=== PATIENT | female | born 1985 | race Caucasian/White ===

== ENCOUNTER 2016-12-14 08:52 | Inpatient (IN) | payer SELFPAY ==
[~2016-12-14] VITALS: Ht 157.5 cm; Wt 81.0 kg
[~2016-12-14 08:52] MED LIST: Z.0.NO CURRENT MEDS
[2016-12-14 08:55] VITALS: BP 166/96; PULSE 68; RESP 15; TEMP 98.2; O2SAT 98
[2016-12-14] MEDS ORDERED: TEGR200T PO (09:04)
[2016-12-14] MEDS ORDERED: LISI-515 PO (09:04)
[2016-12-14] MEDS ORDERED: BUSP15TA PO (09:04)
[2016-12-14] MEDS ORDERED: PROZ20CA11 PO (09:04)
[2016-12-14] MEDS ORDERED: SODIUM CHLOR 0.9% 1000 ML INJ 1,000 ML IV SCH (09:10)
[2016-12-14 09:14] VITALS: RESP 15; O2SAT 100
[2016-12-14] MEDS ORDERED: ALUMINUM/MAGNESIUM/SIMETH 30 ML CUP PO ONE (09:15)
[2016-12-14] MEDS ORDERED: FAMOTIDINE 20 MG/2 ML VIAL IV PUSH ONE (09:15)
[2016-12-14] MEDS ORDERED: ONDANSETRON HCL 4 MG/2 ML VIAL IVP ONE (09:15)
[2016-12-14] MEDS ORDERED: LIDOCAINE VISCOUS 2% SOLN 15 ML UDC PO ONE (09:15)
[2016-12-14] MEDS ORDERED: MORPHINE SULFATE 4 MG/ML INJ IV PUSH ONE ×2 (09:15→11:30)
[2016-12-14] MEDS: SODIUM CHLORIDE 0.9% FLUSH 10 ML FLUSH IV FLUSH PRN ×2 (09:34→11:50)
[2016-12-14 09:46] LABS: AUTOMATED NEUTROPHIL # 6.8 TH/MM3 (1.8-7.7); BASOPHIL % 0.4 % (0.0-2.0); EOSINOPHIL # 0.1 TH/MM3 (0-0.4); EOSINOPHIL % 1.1 % (0.0-4.0); HEMATOCRIT 37.3 % (35.0-46.0); HEMO FLAGS DIFF FINAL; LYMPH % 13.8 % (9.0-44.0); LYMPHOCYTE # 1.2 TH/MM3 (1.0-4.8); MEAN CELL VOLUME 91.1 FL (80.0-100.0); MEAN CORPUSCULAR HEMOGLOBIN 31.2 PG (27.0-34.0); MEAN CORPUSCULAR HGB CONC 34.2 % (32.0-36.0); MONO % 8.2 % (0.0-8.0); NEUT % 76.5 % (16.0-70.0); PLATELET COUNT 269 TH/MM3 (150-450); RED BLOOD COUNT 4.09 MIL/MM3 (4.00-5.30); RED CELL DISTRIBUTION WIDTH 14.3 % (11.6-17.2); WHITE BLOOD COUNT 8.8 TH/MM3 (4.0-11.0)
--- NOTE | 2016-12-14 09:52 | PD ---
HPI Chief Complaint: Abdominal Pain Time Seen by Provider: 09:06 Travel History International Travel<30 days: No Contact w/Intl Traveler<30days: No Traveled to known affect area: No History of Present Illness HPI Patient is a 31 year old female who comes in complaining of epigastric abdominal pain for the past 4 days. She says it usually comes on at night, but today is worse and the pain has not gone away. She says the pain radiates through to her back. She says she has felt nauseous and she forced herself to throw up, thinking it would relieve her symptoms, but it did not help. She denies any fever or chills. She says she is having normal bowel movements. She says she tried taking an Omeprazole without relief. PFSH Past Medical History Blood Disorders: No Bipolar Disorder: Yes Anxiety: Yes Depression: Yes Cancer: No Cardiovascular Problems: No Diminished Hearing: No Endocrine: No Genitourinary: No Musculoskeletal: Yes (CHRONIC NECK PAIN) Neurologic: No Psychiatric: Yes (OD SLEEPING PILLS AT 16 Y/O) Reproductive: No Respiratory: No ?: Not LMP: 11/17/16 : 5 Para: 4 : 1 Tubal Ligation: Yes (01/30/08) Past Surgical History Abdominal Surgery: Yes (C/S) AICD: No Arteriovenous Shunt: No Section: Yes (LAST ) Insulin Pump: No Joint Replacement: No Pacemaker: No Other Surgery: No Social History Alcohol Use: No Tobacco Use: No Substance Use: No Allergies-Medications (Allergen,Severity, Reaction): Coded Allergies: No Known Allergies (Verified , 12/14/16) Reported Meds & Prescriptions Reported Meds & Active Scripts Active Reported Prozac (Fluoxetine HCl) 20 Mg Cap 30 Mg PO DAILY Tegretol (Carbamazepine) 200 Mg Tab 1,000 Mg PO DAILY Lisinopril 20 Mg Tab 20 Mg PO DAILY Buspirone (Buspirone HCl) 15 Mg Tab 15 Mg PO DAILY Review of Systems Except as stated in HPI: all other systems reviewed are Neg General / Constitutional: No: Fever, Chills HENT: No: Headaches, Lightheadedness Cardiovascular: No: Chest Pain or Discomfort Respiratory: No: Shortness of Breath Gastrointestinal: Positive: Nausea, Abdominal Pain, No: Diarrhea, Constipation Genitourinary: No: Dysuria Musculoskeletal: No: Myalgias, Pain Skin: No Rash, No Change in Pigmentation Neurologic: No: Weakness, Dizziness Physical Exam Narrative GENERAL: Awake and alert, in no acute distress. SKIN: Focused skin assessment warm/dry. HEAD: Atraumatic. Normocephalic. EYES: Pupils equal and round. No scleral icterus. ENT: Mucous membranes pink and moist. NECK: Trachea midline. No JVD. CARDIOVASCULAR: Regular rate and rhythm. No murmur appreciated. RESPIRATORY: No accessory muscle use. Clear to auscultation. Breath sounds equal bilaterally. GASTROINTESTINAL: Abdomen soft, nondistended. Tender to palpation of the right upper quadrant as well as the epigastric area. No rebound or guarding. MUSCULOSKELETAL: No obvious deformities. No clubbing. No cyanosis. No edema. NEUROLOGICAL: Awake and alert. No obvious cranial nerve deficits. Motor grossly within normal limits. Normal speech. PSYCHIATRIC: Appropriate mood and affect; insight and judgment normal. Data Data Last Documented VS Vital Signs Date Time Temp Pulse Resp B/P Pulse Ox O2 Delivery O2 Flow Rate FiO2 12/14/16 12:00 85 16 162/102 98 Room Air 12/14/16 08:55 98.2 Orders Basic Metabolic Panel (Bmp) (12/14/16 09:10) Complete Blood Count With Diff (12/14/16 09:10) Lipase (12/14/16 09:10) Urinalysis - C+S If Indicated (12/14/16 09:10) Ua Includes Microscopic (12/14/16 09:10) Us Abdomen Gallbladder (12/14/16 ) Iv Access Insert/Monitor (12/14/16 09:10) Ecg Monitoring (12/14/16 09:10) Oximetry (12/14/16 09:10) Morphine Inj (Morphine Inj) (12/14/16 09:15) Ondansetron Inj (Zofran Inj) (12/14/16 09:15) Sodium Chlor 0.9% 1000 Ml Inj (Ns 1000 M (12/14/16 09:10) Sodium Chloride 0.9% Flush (Ns Flush) (12/14/16 09:15) Famotidine Inj (Pepcid Inj) (12/14/16 09:15) Al-Mag Hy-Si 40-40-4 Mg/Ml Liq (Mag-Al P (12/14/16 09:15) Lidocaine 2% Viscous (Xylocaine 2% Visco (12/14/16 09:15) Ed Urine Pregnancytest Poc (12/14/16 09:10) Hepatic Functional Panel (12/14/16 09:10) Morphine Inj (Morphine Inj) (12/14/16 11:30) Admit Order (Ed Use Only) (12/14/16 ) Consult Gastroenterology (12/14/16 ) Labs Laboratory Tests Test 12/14/16 09:10 White Blood Count 8.8 TH/MM3 Red Blood Count 4.09 MIL/MM3 Hemoglobin 12.8 GM/DL Hematocrit 37.3 % Mean Corpuscular Volume 91.1 FL Mean Corpuscular Hemoglobin 31.2 PG Mean Corpuscular Hemoglobin 34.2 % Concent Red Cell Distribution Width 14.3 % Platelet Count 269 TH/MM3 Mean Platelet Volume 7.9 FL Neutrophils (%) (Auto) 76.5 % Lymphocytes (%) (Auto) 13.8 % Monocytes (%) (Auto) 8.2 % Eosinophils (%) (Auto) 1.1 % Basophils (%) (Auto) 0.4 % Neutrophils # (Auto) 6.8 TH/MM3 Lymphocytes # (Auto) 1.2 TH/MM3 Monocytes # (Auto) 0.7 TH/MM3 Eosinophils # (Auto) 0.1 TH/MM3 Basophils # (Auto) 0.0 TH/MM3 CBC Comment DIFF FINAL Differential Comment Urine Color YELLOW Urine Turbidity CLOUDY Urine pH 7.0 Urine Specific [place] 1.031 Urine Protein 30 mg/dL Urine Glucose (UA) NEG mg/dL Urine Ketones NEG mg/dL Urine Occult Blood NEG Urine Nitrite NEG Urine Bilirubin NEG Urine Urobilinogen 2.0 MG/DL Urine Leukocyte Esterase NEG Urine WBC LESS THAN 1 /hpf Urine Squamous Epithelial 5 /hpf Cells Urine Amorphous Sediment MANY Microscopic Urinalysis Comment CULT NOT INDICATED Sodium Level 137 MEQ/L Potassium Level 3.5 MEQ/L Chloride Level 106 MEQ/L Carbon Dioxide Level 26.2 MEQ/L Anion Gap 5 MEQ/L Blood Urea Nitrogen 13 MG/DL Creatinine 0.55 MG/DL Estimat Glomerular Filtration 129 ML/MIN Rate Random Glucose 93 MG/DL Calcium Level 8.0 MG/DL Total Bilirubin 0.5 MG/DL Direct Bilirubin 0.3 MG/DL Indirect Bilirubin 0.2 MG/DL Aspartate Amino Transf 625 U/L (AST/SGOT) Alanine Aminotransferase 312 U/L (ALT/SGPT) Alkaline Phosphatase 489 U/L Total Protein 6.9 GM/DL Albumin 3.2 GM/DL Lipase 290 U/L Urine Opiates Screen NEG Acetaminophen Level LESS THAN 2.0 MCG/ML Urine Barbiturates Screen NEG Urine Amphetamines Screen NEG Urine Benzodiazepines Screen NEG Urine Cocaine Screen NEG Urine Cannabinoids Screen NEG MDM Medical Decision Making Medical Screen Exam Complete: Yes Emergency Medical Condition: Yes Medical Record Reviewed: Yes Differential Diagnosis Cholecystitis versus pancreatitis versus GERD versus gastritis Narrative Course is a 31-year-old female comes in complaining of epigastric abdominal pain for the past 4 days ago worse last night. Exam shows tenderness to the epigastric area as well as right upper quadrant. IV established, labs sent. Labs show an elevation in AST and ALTs was 625 and 312 as well as an elevation of alkaline phosphatase to 489. Right upper quadrant ultrasound performed shows multiple gallstones and dilatation of the common bile duct to 9 mm. Last 24 hours Impressions Gall Bladder Ultrasound 12/14/16 0000 Signed Impressions: Service Date/Time: Wednesday, December 14, 2016 09:29 - CONCLUSION: 1. Cholelithiasis with multiple echogenic gallstones. There is no wall thickening or pericholecystic fluid. 2. The common bile duct is enlarged at 9 mm with no visualized stone. The entire duct cannot be visualized. 3. The liver is mildly prominent with findings characteristic of fatty infiltration. Hugo Andersen MD Patient given pain medicine. GI consulted for ERCP. Patient admitted for further management. Diagnosis Primary Impression: Cholelithiasis Qualified Code: K80.71 - Calculus of gallbladder and bile duct with obstruction without cholecystitis Additional Impressions: Common bile duct dilatation Transaminitis Admitting Information Admitting Physician Requests: Admit Condition: Stable Marcella Kim MD Dec 14, 2016 09:52
[2016-12-14 09:55] LABS: BICARBONATE 26.2 MEQ/L (21.0-32.0); POTASSIUM 3.5 MEQ/L (3.5-5.1)
[2016-12-14 09:59] LABS: INDIRECT BILIRUBIN 0.2 MG/DL (0.0-0.8); TOTAL BILIRUBIN ADULT 0.5 MG/DL (0.2-1.0)
[2016-12-14 10:14] LABS: BLOOD, URINE NEG (NEG); COMMENT (UR) CULT NOT INDICATED; CULTURE IF INDICATED CULT NOT INDICATED; GLUCOSE,URINE NEG (NEG); KETONE, URINE NEG (NEG); NITRITE,URINE NEG (NEG); SQUAMOUS EPITHELIAL CELL URINE 5 /hpf (0-5); URINE COLOR YELLOW (YELLW/STRAW)
--- NOTE | 2016-12-14 10:16 | RADRPT ---
EXAM DATE/TIME: 12/14/2016 09:29 [facility] COMPARISON: No previous studies available for comparison. INDICATIONS : Right upper quadrant pain. MEDICAL HISTORY : Anxiety. Depression. Bipolar. Chronic neck pain. SURGICAL HISTORY : Tubal ligation. section. ENCOUNTER: Initial ACUITY: 3 days PAIN SCORE: 8/10 LOCATION: Right upper quadrant MEASUREMENTS: LIVER: 18.2 cm length COMMON DUCT: 9 mm RIGHT KIDNEY: 10.5 x 5.9 x 4.2 cm FINDINGS: LIVER: The liver is prominent measuring up to 18.2 cm with mild increased echogenicity. There is no focal ma ss or intrahepatic ductal dilatation. COMMON DUCT: Common bile duct is dilated and measures up to 9 mm in size. There is no evidence of choledocholithia sis in the visualized portions of the duct. GALLBLADDER: There are multiple echogenic gallstones with posterior shadowing. There is no gallbladder wall thicke farrah or pericholecystic fluid. PANCREAS: The visualized portions are within normal limits. RIGHT KIDNEY: No evidence of hydronephrosis, stone, or mass. CONCLUSION: 1. Cholelithiasis with multiple echogenic gallstones. There is no wall thickening or pericholecystic fluid. 2. The common bile duct is enlarged at 9 mm with no visualized stone. The entire duct cannot be visua lized. 3. The liver is mildly prominent with findings characteristic of fatty infiltration. Hugo Andersen MD on December 14, 2016 at 10:11 Board Certified Radiologist. This report was verified electronically.
[2016-12-14 12:00] VITALS: BP 162/102; PULSE 85; RESP 16; O2SAT 98
--- NOTE | 2016-12-14 12:11 | HHI.HP ---
HPI Service Family Medicine Primary Care Physician No Primary Care Physician Admission Diagnosis Cholelithiasis, obstructing gallstone, Transaminitis Diagnoses: International Travel<30 Days: No Contact w/Intl Traveler<30days: No Known Affected Area: No History of Present Illness 31 y/o F presented to ER with unremitting upper abdominal pain since 3AM. The patient had similar pain around the same time on the 2 nights prior (saturday and saturday night) , however this time the pain did not go away with tylenol. She feels a band of pain around her upper abdomen that radiates to the back. She does experience N/V when she gets the pain. Denies any diarrhea/ constipation. Over the last 24hrs she has vomited 3 times - vomiting food of brown color, no red or green. The pt has a hx of drug use and has been using IV Dilaudid this week during the day. Today she tried tylenol and prilosec and neither relieved her pain. In total she has taken 20 tylenol since saturday. She does not usually take this much tylenol. She has never felt a pain like this before and she has never had biliary colic. She denies any pain following fatty meals. her last meal was a hamburger at 8PM last night. Review of Systems Constitutional: DENIES: Fever, Chills, Dizziness Endocrine: DENIES: Polyuria Eyes: DENIES: Vision loss, Double Vision Ears, nose, mouth, throat: DENIES: Throat pain, Sinus Pain Respiratory: DENIES: Cough, Wheezing, Shortness of breath Gastrointestinal: DENIES: Constipation, Diarrhea Genitourinary: DENIES: Dysmenorrhea Musculoskeletal: DENIES: Neck pain Integumentary: DENIES: Rash Immunologic/allergic: DENIES: Urticaria Neurologic: DENIES: Headache Psychiatric: DENIES: Mood changes Past Family Social History Past Medical History LMP 11/17, regular periods x 3 c/s x 1 - STAT c/s hypertension (dx 2014 while [facility]) - on lisinopril daily Bipolar (dx 2014 while in penitentiary) - currently has appt at [facility] () Past Surgical History c/s x1 Reported Medications lisinopril psych meds: busipar, tegratol, prozac Allergies: Coded Allergies: No Known Allergies (Verified , 12/14/16) Family History father - mother - alive, GB removed -pt states multiple people in family have had cholecystectomy Social History denies tobacco,drinks rarely, + drug use drug use: IV drug use (meth, dilaudid) - pt originally states she last used IV drugs 3 years ago, upon further questioning she admits to drug use this week lives with [id number], says she feels comfortable and has support at home, she has been out of penitentiary for 3 weeks Physical Exam Vital Signs Vital Signs Date Time Temp Pulse Resp B/P Pulse Ox O2 Delivery O2 Flow Rate FiO2 12/14/16 11:54 16 12/14/16 10:21 16 12/14/16 09:14 15 100 Room Air 12/14/16 09:08 16 12/14/16 08:55 98.2 68 15 166/96 98 Physical Exam GENERAL: This is a well-nourished, well-developed patient, in no apparent distress. SKIN: No rashes, ecchymoses or lesions. Cool and dry. HEAD: Atraumatic. Normocephalic. No temporal or scalp tenderness. EYES: Pupils equal round and reactive. Extraocular motions intact. No scleral icterus. No injection or drainage. ENT: Nose without bleeding, purulent drainage or septal hematoma. Throat without erythema, tonsillar hypertrophy or exudate. Uvula midline. Airway patent. NECK: Trachea midline. No JVD or lymphadenopathy. Supple, nontender, no meningeal signs. CARDIOVASCULAR: Regular rate and rhythm without murmurs, gallops, or rubs. RESPIRATORY: Clear to auscultation. Breath sounds equal bilaterally. No wheezes , rales, or rhonchi. GASTROINTESTINAL: Abdomen soft, mild tenderness to deep palpation in upper left and right quadrants, nondistended. No hepato-splenomegaly, or palpable masses. No guarding. MUSCULOSKELETAL: Extremities without clubbing, cyanosis, or edema. No joint tenderness, effusion, or edema noted. No calf tenderness. Negative Homans sign bilaterally. NEUROLOGICAL: Awake and alert. Cranial nerves II through XII intact. Motor and sensory grossly within normal limits. Five out of 5 muscle strength in all muscle groups. Normal speech. Laboratory Laboratory Tests Test 12/14/16 09:10 White Blood Count 8.8 Red Blood Count 4.09 Hemoglobin 12.8 Hematocrit 37.3 Mean Corpuscular Volume 91.1 Mean Corpuscular Hemoglobin 31.2 Mean Corpuscular Hemoglobin 34.2 Concent Red Cell Distribution Width 14.3 Platelet Count 269 Mean Platelet Volume 7.9 Neutrophils (%) (Auto) 76.5 Lymphocytes (%) (Auto) 13.8 Monocytes (%) (Auto) 8.2 Eosinophils (%) (Auto) 1.1 Basophils (%) (Auto) 0.4 Neutrophils # (Auto) 6.8 Lymphocytes # (Auto) 1.2 Monocytes # (Auto) 0.7 Eosinophils # (Auto) 0.1 Basophils # (Auto) 0.0 CBC Comment DIFF FINAL Differential Comment Urine Color YELLOW Urine Turbidity CLOUDY Urine pH 7.0 Urine Specific [place] 1.031 Urine Protein 30 Urine Glucose (UA) NEG Urine Ketones NEG Urine Occult Blood NEG Urine Nitrite NEG Urine Bilirubin NEG Urine Urobilinogen 2.0 Urine Leukocyte Esterase NEG Urine WBC LESS THAN 1 Urine Squamous Epithelial 5 Cells Urine Amorphous Sediment MANY Microscopic Urinalysis Comment CULT NOT INDICATED Sodium Level 137 Potassium Level 3.5 Chloride Level 106 Carbon Dioxide Level 26.2 Anion Gap 5 Blood Urea Nitrogen 13 Creatinine 0.55 Estimat Glomerular Filtration 129 Rate Random Glucose 93 Calcium Level 8.0 Total Bilirubin 0.5 Direct Bilirubin 0.3 Indirect Bilirubin 0.2 Aspartate Amino Transf 625 (AST/SGOT) Alanine Aminotransferase 312 (ALT/SGPT) Alkaline Phosphatase 489 Total Protein 6.9 Albumin 3.2 Lipase 290 Result Diagram: 12/14/16 0910 12/14/16 0910 Assessment and Plan Assessment and Plan 31-year-old female with choledocholithiasis, scheduled for ERCP today and tentatively scheduled for laparoscopic cholecystectomy at 8 AM tomorrow. Code Status DNR Discussed Condition With Dr. Nicole Problem List: (1) Cholelithiasis Status: Acute Plan: choledocolithiasis - Abdominal ultrasound: Cholelithiasis with multiple echogenic gallstones. There is no wall thickening or pericholecystic fluid. Common bile duct is enlarged at 9 mm with no visualized stone. The entire duct cannot be visualized. Liver is mildly prominent with findings characteristic of fatty infiltration. - confirmed by 9mm CBD on abdominal u/s - GI consult for ERCP with sphincterotomy and balloon stone retrieval today - General surgery consult for lap cholecystectomy - cont pain management - NPO - IVF NS 120/hr (2) Transaminitis Status: Acute Plan: Transaminitis due to biliary transaminitis versus acetaminophen tox - AST 625, ALTs 312, alkaline phosphatase 49, total bilirubin 0.5 - Acetaminophen tox level = less than 2 - Likely transaminitis due to biliary source - Follow up labs in a.m. (3) Common bile duct dilatation Status: Acute Plan: see plan under cholelithiasis (4) Hypertension Status: Chronic Plan: Primary hypertension Cont home medications: Lisinopril 20 daily (5) Heart murmur on physical examination Status: Acute Plan: 2-3/6 systolic murmur, hx of IV drug use - TTE and blood cx to r/o endocarditis - afebrile, VSS at this time, does not meet septic criteria (6) IV drug user Status: Chronic Plan: f/u UDS (7) Bipolar disorder Status: Chronic Plan: Continue home medications: Buspirone 15 daily, Tegretol 200 mg daily, fluoxetine 20 daily Physician Certification 2 Midnight Certification Type: Admission for Inpatient Services Order for Inpatient Services The services are ordered in accordance with Medicare regulations or non- Medicare payer requirements, as applicable. In the case of services not specified as inpatient-only, they are appropriately provided as inpatient services in accordance with the 2-midnight benchmark. Estimated LOS (days): 2 days is the estimated time the patient will need to remain in the hospital, assuming treatment plan goals are met and no additional complications. Post-Hospital Plan: Home Problem Qualifiers (1) Cholelithiasis: Qualified Code: K80.71 - Calculus of gallbladder and bile duct with obstruction without cholecystitis Sarah Alcaraz MD R2 Dec 14, 2016 12:11
[2016-12-14] MEDS ORDERED: SODIUM CHLORIDE 0.9% FLUSH 10 ML FLUSH IV FLUSH PRN (12:15)
[2016-12-14 12:18] VITALS: O2SAT 99
--- NOTE | 2016-12-14 12:42 | PD.CONS ---
HPI History of Present Illness This is a 31 year old who came to the ER for evaluation of abdominal pain. She reports that the pain has been waking her up out of her sleep every night since Saturday. She describes this as a "contraction type pain" across her upper abdomen with radiation to her back and associated nausea/vomiting with undigested food. She cannot identify any aggravating factors. She has tried Tylenol at home (5 at a time) every few hours. She reports that she has probably taken 20 Tylenol since Saturday. She has not had any today. She has also tried protonix. Usually, the pain will gradually resolve, but she reports that this last episode that began around [place] last night has been more severe and constant. She denies bloating, constipation, or diarrhea. She denies any food intolerances. She denies any heartburn or reflux. She does not drink alcohol. She does have a hx of IV Methamphetamines 3 years ago and current IV Dilaudid use (last on Saturday). She has a history of Hepatitis C, treatment naive. ( Malika Baez) PFSH Past Medical History Hepatitis C, tx naive IVDA Past Surgical History (Malika Baez) Coded Allergies: No Known Allergies (Verified , 12/14/16) Medications Allergies Coded Allergies Type Severity Reaction Last Updated Verified No Known Allergies 12/14/16 Yes Active Scripts Medications Dose Route/Sig Days Date Category Prozac (Fluoxetine HCl) 20 Mg Cap 30 Mg PO DAILY 12/14/16 Reported Tegretol (Carbamazepine) 200 Mg Tab 1,000 Mg PO DAILY 12/14/16 Reported Lisinopril 20 Mg Tab 20 Mg PO DAILY 12/14/16 Reported Buspirone (Buspirone HCl) 15 Mg Tab 15 Mg PO DAILY 12/14/16 Reported Family History Denies Social History No tobacco. No etoh use Hx IV methamphetamines (3 years ago) and dilaudid (saturday) (Malika Baez) Review of Systems Constitutional: DENIES: Fatigue, Fever, Weight loss, Chills Respiratory: DENIES: Cough, Shortness of breath Cardiovascular: DENIES: Chest pain Gastrointestinal: COMPLAINS OF: Abdominal pain, Nausea, Vomiting, DENIES: Black stools, Bloody stools, Constipation, Diarrhea, Swelling of Abdomen, Heartburn, Hematemesis Musculoskeletal: COMPLAINS OF: Back pain, DENIES: Joint pain Integumentary: DENIES: Jaundice Hematologic/lymphatic: DENIES: Bruising Neurologic: DENIES: Headache Psychiatric: DENIES: Confusion (Malika Baez JOAN) GI Exam Vitals I&O Vital Signs Date Time Temp Pulse Resp B/P Pulse Ox O2 Delivery O2 Flow Rate FiO2 12/14/16 12:18 99 21 12/14/16 12:00 85 16 162/102 98 Room Air 12/14/16 11:54 16 12/14/16 10:21 16 12/14/16 09:14 15 100 Room Air 12/14/16 09:08 16 12/14/16 08:55 98.2 68 15 166/96 98 Imaging Last Impressions Gall Bladder Ultrasound 12/14/16 0000 Signed Impressions: Service Date/Time: Wednesday, December 14, 2016 09:29 - CONCLUSION: 1. Cholelithiasis with multiple echogenic gallstones. There is no wall thickening or pericholecystic fluid. 2. The common bile duct is enlarged at 9 mm with no visualized stone. The entire duct cannot be visualized. 3. The liver is mildly prominent with findings characteristic of fatty infiltration. Hugo Andersen MD Laboratory Test 12/14/16 09:10 White Blood Count 8.8 TH/MM3 Red Blood Count 4.09 MIL/MM3 Hemoglobin 12.8 GM/DL Hematocrit 37.3 % Mean Corpuscular Volume 91.1 FL Mean Corpuscular Hemoglobin 31.2 PG Mean Corpuscular Hemoglobin 34.2 % Concent Red Cell Distribution Width 14.3 % Platelet Count 269 TH/MM3 Mean Platelet Volume 7.9 FL Neutrophils (%) (Auto) 76.5 % Lymphocytes (%) (Auto) 13.8 % Monocytes (%) (Auto) 8.2 % Eosinophils (%) (Auto) 1.1 % Basophils (%) (Auto) 0.4 % Neutrophils # (Auto) 6.8 TH/MM3 Lymphocytes # (Auto) 1.2 TH/MM3 Monocytes # (Auto) 0.7 TH/MM3 Eosinophils # (Auto) 0.1 TH/MM3 Basophils # (Auto) 0.0 TH/MM3 CBC Comment DIFF FINAL Differential Comment Urine Color YELLOW Urine Turbidity CLOUDY Urine pH 7.0 Urine Specific [place] 1.031 Urine Protein 30 mg/dL Urine Glucose (UA) NEG mg/dL Urine Ketones NEG mg/dL Urine Occult Blood NEG Urine Nitrite NEG Urine Bilirubin NEG Urine Urobilinogen 2.0 MG/DL Urine Leukocyte Esterase NEG Urine WBC LESS THAN 1 /hpf Urine Squamous Epithelial 5 /hpf Cells Urine Amorphous Sediment MANY Microscopic Urinalysis Comment CULT NOT INDICATED Sodium Level 137 MEQ/L Potassium Level 3.5 MEQ/L Chloride Level 106 MEQ/L Carbon Dioxide Level 26.2 MEQ/L Anion Gap 5 MEQ/L Blood Urea Nitrogen 13 MG/DL Creatinine 0.55 MG/DL Estimat Glomerular Filtration 129 ML/MIN Rate Random Glucose 93 MG/DL Calcium Level 8.0 MG/DL Total Bilirubin 0.5 MG/DL Direct Bilirubin 0.3 MG/DL Indirect Bilirubin 0.2 MG/DL Aspartate Amino Transf 625 U/L (AST/SGOT) Alanine Aminotransferase 312 U/L (ALT/SGPT) Alkaline Phosphatase 489 U/L Total Protein 6.9 GM/DL Albumin 3.2 GM/DL Lipase 290 U/L Physical Examination HEENT: Normocephalic; atraumatic; no jaundice. Throat is clear. NECK: Neck is supple, no JVD, no lymphadenopathy. CHEST: CTA CARDIAC: RRR ABDOMEN: Soft, nondistended, epigastric tenderness; no hepatosplenomegaly; bowel sounds are present in all four quadrants. EXTREMITIES: No clubbing, cyanosis, or edema. SKIN: Normal; no rash; no jaundice. DELIVERER PHARMACY: No focal deficits; alert and oriented times three. (Malika Baez [facility]) Assessment and Plan Plan ASSESSMENT: - Abdominal pain, nausea, vomiting with dilated CBD. Epigastric pain awaking her from sleep nightly since Saturday. Last night, her symptoms did not resolve as they usually do. Gall Bladder Ultrasound (12/14/16)----> 1. Cholelithiasis with multiple echogenic gallstones. There is no wall thickening or pericholecystic fluid. 2. The common bile duct is enlarged at 9 mm with no visualized stone. The entire duct cannot be visualized. 3. The liver is mildly prominent with findings characteristic of fatty infiltration. T. Bili 0.2, AST 625, ALT 312, Alk Phosph 489. Will plan for ERCP with sphincterotomy and possible stent placement today. NPO. IVF. - Elevated LFTs. Likely related to above. But patient also has a hx of underlying HCV and takes IV Dilaudid and has been taking excessive Tylenol for her abdominal pain- 20 pills since Saturday. Will get acetaminophen level. - Hepatitis C, Tx naive. - IVDA, last took Dilaudid IV on Saturday. PLAN: - Plan for ERCP with possible sphincterotomy, possible stent placement - Obtain consents - NPO - IVF - Acetaminophen level - Hepatitis profile - CBC, CMP in am - Supportive care - Further recommendations to follow based on results of above - Pt seen and examined by Dr. Diaz and myself and this note is written on his behalf (Malika Baez) Physician Comments Patient seen and examined agree with above Continue with current supportive care Monitor labs High suspicion for choledocholithiasis with a dilated duct abdominal pain and elevated liver function tests and gallstones therefore we will proceed with an ERCP (Dandy Diaz MD) Malika Baez Dec 14, 2016 12:42 Dandy Diaz MD Dec 14, 2016 20:36
[2016-12-14] MEDS ORDERED: MORPHINE SULFATE 4 MG/ML INJ IV PRN ×2 (12:45)
[2016-12-14] MEDS ORDERED: NALOXONE HCL 0.4 MG/ML AMP IV PRN (12:45)
[2016-12-14] MEDS: SODIUM CHLOR 0.9% 1000 ML INJ 1,000 ML IV SCH ×2 (14:32→21:19)
[2016-12-14] MEDS: MORPHINE SULFATE 4 MG/ML INJ IV PRN (15:28)
[2016-12-14 16:00] VITALS: BP 163/90; PULSE 70; RESP 17; TEMP 96.2; O2SAT 100
[2016-12-14] MEDS ORDERED: IOHEXOL 350 MG/ML 50 ML BTL (for RAD DIAG) OTHER ONE (16:08)
--- NOTE | 2016-12-14 16:18 | PD.CONS ---
cc: Hugo Middleton MD [facility] Service General Surgery Consult Requested By Dr. Nicole Reason for Consult choledocholithiasis Primary Care Physician No Primary Care Physician History of Present Illness This is a 31-year-old female with a past medical history of hypertension and IV drug abuse. The patient reports abdominal pain that began on Saturday which was dull and intermittent. On present night the pain became constant and sharp. The patient reports no dietary intolerance. The last meal she had was baked chicken last night. She was taking Tylenol without any relief of the pain. The patient has never had an episode like this before. The ultrasound of the gallbladder showed cholelithiasis without gallbladder wall thickening or fluid. The common bile duct is enlarged at 9 mm. She does have elevated liver enzymes. A GI consult was also obtained for ERCP. The patient is going for her ERCP today. A General Surgery consultation has been requested for evaluation of laparoscopic cholecystectomy status post ERCP. Review of Systems Constitutional: DENIES: Fever, Dizziness, Change in appetite Endocrine: DENIES: Polydipsia, Polyuria, Polyphagia Eyes: DENIES: Blurred vision Ears, nose, mouth, throat: DENIES: Hearing loss Respiratory: DENIES: Apneas Cardiovascular: DENIES: Chest pain Gastrointestinal: COMPLAINS OF: Abdominal pain, Nausea, Vomiting Genitourinary: DENIES: Urinary frequency Musculoskeletal: DENIES: Joint pain Integumentary: DENIES: Abnormal pigmentation Hematologic/lymphatic: DENIES: Bruising Immunologic/allergic: DENIES: Eczema Neurologic: DENIES: Headache, Localized weakness Psychiatric: DENIES: Mood changes, Depression Past Family Social History Past Medical History Hepatitis C Hypertension IVDA Past Surgical History and 2007 Reported Medications Lisinopril Tegretol Prozac BuSpar Allergies: Coded Allergies: No Known Allergies (Verified , 12/14/16) Active Ordered Medications Current Medications Medications (Trade) Dose Ordered Sig/Apollo Route Start Time Stop Time Status Last Admin (NS Flush) 2 ml UNSCH PRN IV FLUSH 12/14/16 09:15 12/14/16 11:50 Sodium Chloride 2 ml 2 ml BID IV FLUSH 12/14/16 21:00 (NS 1000 ml Inj) 1,000 ml @ 120 mls/hr Q8H20M IV 12/14/16 14:00 12/14/16 14:32 (Morphine Inj) 2 mg Q3H PRN IV 12/14/16 12:45 (Morphine Inj) 4 mg Q3H PRN IV 12/14/16 12:45 12/14/16 15:28 (Morphine Inj) 3 mg Q3H PRN IV 12/14/16 12:45 (Narcan Inj) 0.4 mg UNSCH PRN IV 12/14/16 12:45 Family History Mother and younger sister have had laparoscopic cholecystectomy Social History Denies tobacco use Denies EtOH use Denies illicit drug use but after review of the chart the patient last use IV Dilaudid on Saturday; she has a history of IV drug abuse Physical Exam Vital Signs Vital Signs Date Time Temp Pulse Resp B/P Pulse Ox O2 Delivery O2 Flow Rate FiO2 12/14/16 12:18 99 21 12/14/16 12:00 85 16 162/102 98 Room Air 12/14/16 11:54 16 12/14/16 10:21 16 12/14/16 09:14 15 100 Room Air 12/14/16 09:08 16 12/14/16 08:55 98.2 68 15 166/96 98 Physical Exam GENERAL: 31-year-old female resting in bed in no acute distress SKIN: Warm and dry. Multiple tattoos on bilateral upper extremities. HEAD: Atraumatic. Normocephalic. EYES: Pupils equal and round. No scleral icterus. No injection or drainage. ENT: No nasal bleeding or discharge. Mucous membranes pink and moist. NECK: Trachea midline. CARDIOVASCULAR: Regular rate and rhythm. RESPIRATORY: No accessory muscle use. Clear to auscultation. Breath sounds equal bilaterally. GASTROINTESTINAL: Abdomen soft, minimally tender with palpation in right upper quadrant; nondistended; obese. MUSCULOSKELETAL: Extremities without clubbing, cyanosis, or edema. No obvious deformities. NEUROLOGICAL: Awake and alert. No obvious cranial nerve deficits. Motor grossly within normal limits. Five out of 5 muscle strength in the arms and legs. Normal speech. PSYCHIATRIC: Appropriate mood and affect; insight and judgment normal. Laboratory Laboratory Tests Test 12/14/16 09:10 White Blood Count 8.8 Red Blood Count 4.09 Hemoglobin 12.8 Hematocrit 37.3 Mean Corpuscular Volume 91.1 Mean Corpuscular Hemoglobin 31.2 Mean Corpuscular Hemoglobin 34.2 Concent Red Cell Distribution Width 14.3 Platelet Count 269 Mean Platelet Volume 7.9 Neutrophils (%) (Auto) 76.5 Lymphocytes (%) (Auto) 13.8 Monocytes (%) (Auto) 8.2 Eosinophils (%) (Auto) 1.1 Basophils (%) (Auto) 0.4 Neutrophils # (Auto) 6.8 Lymphocytes # (Auto) 1.2 Monocytes # (Auto) 0.7 Eosinophils # (Auto) 0.1 Basophils # (Auto) 0.0 CBC Comment DIFF FINAL Differential Comment Urine Color YELLOW Urine Turbidity CLOUDY Urine pH 7.0 Urine Specific [place] 1.031 Urine Protein 30 Urine Glucose (UA) NEG Urine Ketones NEG Urine Occult Blood NEG Urine Nitrite NEG Urine Bilirubin NEG Urine Urobilinogen 2.0 Urine Leukocyte Esterase NEG Urine WBC LESS THAN 1 Urine Squamous Epithelial 5 Cells Urine Amorphous Sediment MANY Microscopic Urinalysis Comment CULT NOT INDICATED Sodium Level 137 Potassium Level 3.5 Chloride Level 106 Carbon Dioxide Level 26.2 Anion Gap 5 Blood Urea Nitrogen 13 Creatinine 0.55 Estimat Glomerular Filtration 129 Rate Random Glucose 93 Calcium Level 8.0 Total Bilirubin 0.5 Direct Bilirubin 0.3 Indirect Bilirubin 0.2 Aspartate Amino Transf 625 (AST/SGOT) Alanine Aminotransferase 312 (ALT/SGPT) Alkaline Phosphatase 489 Total Protein 6.9 Albumin 3.2 Lipase 290 Urine Opiates Screen NEG Acetaminophen Level LESS THAN 2.0 Urine Barbiturates Screen NEG Urine Amphetamines Screen NEG Urine Benzodiazepines Screen NEG Urine Cocaine Screen NEG Urine Cannabinoids Screen NEG Date/Time Procedure Status Source Growth 12/14/16 14:41 Aerobic Blood Culture Received Blood Peripheral Pending 12/14/16 14:41 Anaerobic Blood Culture Received Blood Peripheral Pending Result Diagram: 12/14/16 0910 12/14/16 0910 Assessment and Plan Assessment and Plan 31-year-old female with choledocholithiasis -GI consult today for ERCP -Nothing by mouth -IV fluids -Labs in the morning -Will tentatively plan for laparoscopic cholecystectomy tomorrow morning at [address] Middleton pending results of ERCP and labs -Thank you for this consult; we will continue to follow Attending Note - Dr. Middleton Discussed with Dr. Diaz; pt. had two stones in CBD; sphincterotomy performed and stones extracted. Discussed GAR with patient and sig other in room; they vocalize understanding and agree to proceed with surgery tomorrow. NO narcotics to be prescribed by me to go home due to other issues. The exam, history, and the medical decision-making described in the above note were completed with the assistance of the mid-level provider. I reviewed and agree with the findings presented. I attest that I had a [id number] encounter with the patient on the same day, and personally performed and documented my assessment and findings in the medical record. Discussed Condition With Dr. Kane FRANCO Ms. Lillie Billy Dec 14, 2016 16:18 Hugo Middleton MD Dec 14, 2016 23:51
[2016-12-14] MEDS ORDERED: fentaNYL CITRATE 250 MCG/5 ML AMP ONE (16:42)
[2016-12-14] MEDS ORDERED: PROPOFOL 200 MG/20 ML AMP IV ONE (16:46)
[2016-12-14] MEDS ORDERED: DO NOT ADM ANY ANTICOAGULANT DRUGS PRN (17:16)
[2016-12-14] MEDS ORDERED: *morphine SULFATE 8 MG/ML PERIprocedure ONLY ONE (17:28)
--- NOTE | 2016-12-14 17:32 | RADRPT ---
EXAM DATE/TIME: 12/14/2016 17:04 [place] COMPARISON: No previous studies available for comparison. INDICATIONS : ERCP FLUORO TIME: 2.4 minutes IMAGE COUNT: 4 CONTRAST: Instilled by Ordering Physician MEDICAL HISTORY : None. SURGICAL HISTORY : None. ENCOUNTER: Initial ACUITY: 1 day PAIN SCORE: Non-responsive. LOCATION: Bilateral abdomen. FINDINGS: An ERCP was performed by the ordering physician. The images demonstrate the common bile duct being normal in caliber. The final images demonstrate the duct to be well opacified with no retained stones. CONCLUSION: ERCP as above. Antoine Lewis MD on December 14, 2016 at 17:30 Board Certified Radiologist. This report was verified electronically.
[2016-12-14] MEDS ORDERED: KETOROLAC TROMETHAMINE 60 MG/2 ML (IM) VIAL IM ONE (18:00)
--- NOTE | 2016-12-14 18:08 | HHI.FPPN ---
Subjective Remarks Medicine attending note: 31-year-old woman admitted through the emergency room with epigastric to right upper quadrant pain intermittently over the last 4 days, worsening at the time of presentation to the ER. Patient states that she's not had symptoms like this in the past although all of the women in her family have had their gallbladders removed. Has felt nauseous, no specific vomiting, bowels moving. No fever or chills. On questioning has used some IV dye lauded recently. Has a history of hepatitis C diagnosed 5 years ago , not treated. Refer to resident history and physical for complete discussion her details on presentation. Objective Vitals Vital Signs Date Time Temp Pulse Resp B/P Pulse Ox O2 Delivery O2 Flow Rate FiO2 12/14/16 16:00 96.2 70 17 163/90 100 12/14/16 12:18 99 21 12/14/16 12:00 85 16 162/102 98 Room Air 12/14/16 11:54 16 12/14/16 10:21 16 12/14/16 09:14 15 100 Room Air 12/14/16 09:08 16 12/14/16 08:55 98.2 68 15 166/96 98 Result Diagram: 12/14/16 0910 12/14/16 0910 Objective Remarks Vital signs noted. Blood pressure labile. Afebrile. Gen. appearance: Young woman resting reasonably comfortable after having received IV analgesia, previously been complaining of epigastric pain. HEENT: Grossly nonlocalizing. Lungs: Clear to auscultation.: Soft solid murmur left sternal border, no S3 Abdomen: Appearance unremarkable, active bowel sounds, palpation does relate some tenderness on deep palpation in the epigastrium and right upper quadrant, no rebound or referred tenderness. Extremities: Calves are supple, feet are warm and dry. Neurologic: Grossly nonlocalizing. Refer to resident history and physical for complete discussion of details. A/P Assessment and Plan Clinical assessment 31-year-old woman with history of hepatitis C and IV drug use without any reported complications of endocarditis in the past admitted with ultrasound findings consistent with cholelithiasis and a possible common bile duct stone. GI will be consulted for possible ERCP, anticipate possible laparoscopic cholecystectomy per Gen. surgery consultation. Patient seen and examined. Case reviewed and discussed with resident team. Agree with plan of care as discussed with me and documented in the resident note. Problem List: (1) Cholelithiasis Status: Acute Plan: choledocolithiasis - confirmed by 9mm CBD on abdominal u/s - GI consult for ERCP - General surgery consult for lap cholecystectomy - cont pain management - NPO - IVF NS 120/hr (2) Transaminitis Status: Acute Plan: cont to trend LFTs (3) Common bile duct dilatation Status: Acute Plan: see plan under cholelithiasis (4) Hypertension Status: Chronic Plan: Cont home medications (5) Heart murmur on physical examination Status: Acute Plan: 2-3/6 systolic murmur, hx of IV drug use - TTE and blood cx to r/o endocarditis - afebrile, VSS at this time, does not meet septic criteria (6) IV drug user Status: Chronic Plan: f/u UDS Problem Qualifiers (1) Cholelithiasis: Qualified Code: K80.71 - Calculus of gallbladder and bile duct with obstruction without cholecystitis Daniel Stratton MD Dec 14, 2016 18:08
[2016-12-14 20:00] VITALS: BP 110/61; PULSE 65; RESP 18; TEMP 96.6; O2SAT 97
--- NOTE | 2016-12-14 20:39 | PD.PROCEDR ---
GI Procedure REFERRING PHYSICIAN Dr. Stratton PROCEDURE PERFORMED ERCP with sphincterotomy and balloon extraction INDICATION FOR PROCEDURE Abdominal pain elevated liver function tests and cholelithiasis and probable choledocholithiasis PROCEDURE: The procedure, risks and benefits were discussed with Ms. Mock and informed consent was obtained. Anesthesia sedated her with Diprivan. She was placed in the left lateral decubitus position. ERCP: Patient was placed in a prone position. The Pentax videoscope was introduced through the oropharynx and advanced to the second portion of the duodenum where the ampula was identified. FINDINGS: The ampulla appeared to be unremarkable we were able to obtain easy cannulation of the common bile duct which appeared to be mildly dilated with filling defects in the distal portion a sphincterotomy was performed then using initially 8 mm balloon and then 12 mm balloon we were able to clear the common bile duct and an obstructive cholangiogram revealed no further filling defects and therefore the procedure was terminated at this point ESTIMATED BLOOD LOSS: None SPECIMENS REMOVED: None COMPLICATIONS: None IMPRESSION: Choledocholithiasis PLAN: Supportive care Further recommendations as per the Gen. surgery service Dandy Diaz MD Dec 14, 2016 20:39
[2016-12-14] MEDS: SODIUM CHLORIDE 0.9% FLUSH 10 ML FLUSH IV FLUSH SCH (21:00)
[2016-12-14] MEDS ORDERED: SODIUM CHLORID 0.9% 500 ML IV PRN (21:30)
[2016-12-14] MEDS ORDERED: LACTATED RINGER'S 1000 ML IV PRN (21:30)
[2016-12-15] VITALS: BP 111/73; PULSE 73; RESP 18; TEMP 97.2; O2SAT 97
[2016-12-15] MEDS: SODIUM CHLOR 0.9% 1000 ML INJ 1,000 ML IV SCH (00:16)
[2016-12-15] MEDS: MORPHINE SULFATE 4 MG/ML INJ IV PRN ×5 (00:16→23:12)
[2016-12-15] MEDS: ONDANSETRON HCL 4 MG/2 ML VIAL IV PUSH PRN ×3 (01:34→18:15)
[2016-12-15] MEDS ORDERED: BUPIVACAINE HCL PF 0.25% 30 ML VIAL ONE (05:45)
[2016-12-15] MEDS ORDERED: BUPIVACAINE/EPINEPHRINE 0.25% 50 ML VIAL ONE (07:26)
[2016-12-15 07:42] LABS: BASOPHIL % 0.5 % (0.0-2.0); EOSINOPHIL # 0.1 TH/MM3 (0-0.4); EOSINOPHIL % 1.4 % (0.0-4.0); HEMATOCRIT 34.4 % (35.0-46.0); HEMO FLAGS DIFF FINAL; LYMPH % 27.4 % (9.0-44.0); LYMPHOCYTE # 1.3 TH/MM3 (1.0-4.8); MEAN CELL VOLUME 91.3 FL (80.0-100.0); MEAN CORPUSCULAR HGB CONC 33.9 % (32.0-36.0); MONO % 6.4 % (0.0-8.0); NEUT % 64.3 % (16.0-70.0); PLATELET COUNT 232 TH/MM3 (150-450); RED BLOOD COUNT 3.76 MIL/MM3 (4.00-5.30); RED CELL DISTRIBUTION WIDTH 13.8 % (11.6-17.2); WHITE BLOOD COUNT 4.7 TH/MM3 (4.0-11.0)
[2016-12-15 07:59] LABS: ANION GAP 6 MEQ/L (5-15); AST (GOT) 299 U/L (15-37); BICARBONATE 27.3 MEQ/L (21.0-32.0); BLOOD UREA NITROGEN 7 MG/DL (7-18); CHLORIDE 107 MEQ/L (98-107); GLOMERULAR FILTRATION RATE 176 ML/MIN (>89); POTASSIUM 3.9 MEQ/L (3.5-5.1); SODIUM (NA) 140 MEQ/L (136-145)
[2016-12-15 08:00] LABS: ALT (GPT) 351 U/L (10-53)
[2016-12-15 08:02] LABS: ALKALINE PHOSPHATASE 437 U/L (45-117); TOTAL BILIRUBIN ADULT 0.5 MG/DL (0.2-1.0)
[2016-12-15] MEDS ORDERED: ceFAZolin INJ 1,000 MG VIAL ONE (08:16)
[2016-12-15] MEDS: SODIUM CHLORIDE 0.9% FLUSH 10 ML FLUSH IV FLUSH SCH ×2 (09:00→19:46)
[2016-12-15] MEDS ORDERED: DO NOT ADM ANY ANTICOAGULANT DRUGS PRN (09:35)
[2016-12-15] MEDS ORDERED: MIDAZOLAM HCL 2 MG/2 ML VIAL ONE (09:48)
[2016-12-15] MEDS ORDERED: fentaNYL CITRATE 250 MCG/5 ML AMP ONE (09:48)
[2016-12-15] MEDS ORDERED: fentaNYL CITRATE 1000 MCG/20 ML VIAL ONE (09:49)
[2016-12-15] MEDS ORDERED: *morphine SULFATE 8 MG/ML PERIprocedure ONLY ONE ×2 (09:52→09:59)
[2016-12-15] MEDS ORDERED: *HYDROmorphone PF 1 MG VIAL PERIprocedural Use ONLY ONE (10:13)
--- NOTE | 2016-12-15 10:22 | HHI.PR ---
cc: Hugo Middleton MD Immediate Post Op Note Procedure Date: Dec 15, 2016 Pre Op Diagnosis: Acute cholecystitis with previous choledocholithiasis Post Op Diagnosis: Same Surgeon: Hugo Middleton Director [facility] Nursing(s): Amy Irvin CFA Procedure: Laparoscopic cholecystectomy Complications: None Specimen(s) removed: Gallbladder to pathology Estimated blood loss: 50 ml Anesthesia: General Drains: None IVF (800 ml) Patient to: PACU Patient Condition: Good Date/Time of Procedure: SEE SURGICAL CARE RECORD Hugo Middleton MD Dec 15, 2016 10:22
--- NOTE | 2016-12-15 11:57 | HHI.FPPN ---
Subjective Remarks Patient seen and examined bedside in the PACU status post cholecystectomy. Patient is fatigued upon evaluation and recently out of sedation. Patient denies any current pain and is happy that she had the procedure this morning. Patient denies any fever/chills overnight. Patient denies any chest pain/ shortness of breath/dizziness. Objective Vitals Vital Signs Date Time Temp Pulse Resp B/P Pulse Ox O2 Delivery O2 Flow Rate FiO2 12/15/16 10:15 81 20 129/71 99 Nasal Cannula 2 12/15/16 10:00 74 20 135/74 98 Nasal Cannula 2 12/15/16 09:45 83 19 123/58 98 Nasal Cannula 2 12/15/16 09:39 98.3 75 18 136/88 99 Nasal Cannula 2 12/15/16 00:00 97.2 73 18 111/73 97 12/14/16 20:00 96.6 65 18 110/61 97 12/14/16 17:45 67 22 127/71 94 Room Air 12/14/16 17:30 74 24 152/94 98 Room Air 12/14/16 17:18 97.8 76 23 155/95 93 Nasal Cannula 2 12/14/16 16:00 96.2 70 17 163/90 100 12/14/16 12:18 99 21 12/14/16 12:00 85 16 162/102 98 Room Air 12/14/16 11:54 16 I/O 12/14/16 12/14/16 12/14/16 12/15/16 12/15/16 12/15/16 07:00 15:00 23:00 07:00 15:00 23:00 Intake Total 1125 ml 910 ml 800 ml Output Total 50 ml Balance 1125 ml 910 ml 750 ml Intake IV Total 925 ml 910 ml Other 200 ml 800 ml Estimated Blood Loss 50 ml # Voids 1 3 Result Diagram: 12/15/16 0704 12/15/16 0704 Objective Remarks Vital signs noted. Blood pressure labile. Afebrile. Gen. appearance: Young woman resting reasonably comfortablely in post- op PACU HEENT: Grossly nonlocalizing. Lungs: Clear to auscultation.: Soft solid murmur left sternal border, no S3 Abdomen: Appearance unremarkable, active bowel sounds, palpation does relate some tenderness on deep palpation in the epigastrium and right upper quadrant, no rebound or referred tenderness. Dressing is in place and covering laparoscopic scars Extremities: Calves are supple, feet are warm and dry. Neurologic: Grossly nonlocalizing. Refer to resident history and physical for complete discussion of details. A/P Assessment and Plan Clinical assessment 31-year-old woman with history of hepatitis C and IV drug use without any reported complications of endocarditis in the past admitted with ultrasound findings consistent with cholelithiasis and a possible common bile duct stone. GI will be consulted for possible ERCP, anticipate possible laparoscopic cholecystectomy per Gen. surgery consultation. Patient seen and examined. Case reviewed and discussed with resident team. Agree with plan of care as discussed with me and documented in the resident note. Problem List: (1) Cholelithiasis Status: Acute Plan: choledocolithiasis - Abdominal ultrasound: Cholelithiasis with multiple echogenic gallstones. There is no wall thickening or pericholecystic fluid. Common bile duct is enlarged at 9 mm with no visualized stone. The entire duct cannot be visualized. Liver is mildly prominent with findings characteristic of fatty infiltration. - confirmed by 9mm CBD on abdominal u/s - GI consult for ERCP with sphincterotomy and balloon stone retrieval: Done - General surgery consult and lap cholecystectomy: Done - cont pain management -Clear liquids as tolerated - IVF NS 120/hr (2) Transaminitis Status: Acute Plan: Transaminitis due to biliary transaminitis versus acetaminophen tox - AST 625, ALTs 312 --> AST 299, ALTs 351 (12/15) - Acetaminophen tox level = less than 2 - Likely transaminitis due to biliary source -Continue to trend LFTs if patient stays overnight (3) Common bile duct dilatation Status: Acute Plan: see plan under cholelithiasis (4) Hypertension Status: Chronic Plan: Primary hypertension Cont home medications: Lisinopril 20 daily (5) Heart murmur on physical examination Status: Acute Plan: 2-3/6 systolic murmur, hx of IV drug use - afebrile, VSS at this time, does not meet septic criteria - We have a low suspicion for endocarditis - Recommend follow-up with echo as outpatient (6) IV drug user Status: Chronic Plan: Patient admits to IV Dilaudid use this week f/u UDS (7) Bipolar disorder Status: Chronic Plan: Continue home medications: Buspirone 15 daily, Tegretol 200 mg daily, fluoxetine 20 daily Problem Qualifiers (1) Cholelithiasis: Qualified Code: K80.71 - Calculus of gallbladder and bile duct with obstruction without cholecystitis Sarah Alcaraz MD R2 Dec 15, 2016 11:57
[2016-12-15 12:00] VITALS: BP 125/80; PULSE 81; RESP 16; TEMP 96.7; O2SAT 97
[2016-12-15] MEDS ORDERED: PROPOFOL 200 MG/20 ML AMP IV ONE (12:00)
[2016-12-15] MEDS ORDERED: KETOROLAC TROMETHAMINE 60 MG/2 ML (IM) VIAL IM ONE (12:00)
--- NOTE | 2016-12-15 12:37 | HHI.DCPOC ---
Discharge Care Plan Diagnosis: (1) Common bile duct dilatation (2) Choledocholithiasis (3) Cholelithiasis (4) Status post laparoscopic cholecystectomy Goals to Promote Your Health * To prevent worsening of your condition and complications * To maintain your health at the optimal level Directions to Meet Your Goals Take your medications as prescribed Follow your dietary instruction Follow activity as directed Keep your appointments as scheduled Take your immunizations and boosters as scheduled If your symptoms worsen call your PCP, if no PCP go to Urgent Care Center or Emergency Room Smoking is Dangerous to Your Health. Avoid second hand smoke Call the 24-hour hour crisis hotline for domestic abuse at Hugo Odonnell MD R3 Dec 15, 2016 12:37
[2016-12-15 16:00] VITALS: BP 133/81; PULSE 73; RESP 17; TEMP 97.9; O2SAT 98
--- NOTE | 2016-12-15 17:56 | HHI.GIFU ---
Subjective Remarks Sitting up in bed taking clear liquid dinner. States she vomited earlier today after broth. Diffuse abdominal pain- controlled with pain meds. (Malika Baez) Objective Vitals I&O Vital Signs Date Time Temp Pulse Resp B/P Pulse Ox O2 Delivery O2 Flow Rate FiO2 12/15/16 16:00 97.9 73 17 133/81 98 12/15/16 12:00 96.7 81 16 125/80 97 12/15/16 10:30 98.3 81 22 139/70 98 Nasal Cannula 2 12/15/16 10:15 81 20 129/71 99 Nasal Cannula 2 12/15/16 10:00 74 20 135/74 98 Nasal Cannula 2 12/15/16 09:45 83 19 123/58 98 Nasal Cannula 2 12/15/16 09:39 98.3 75 18 136/88 99 Nasal Cannula 2 12/15/16 00:00 97.2 73 18 111/73 97 12/14/16 20:00 96.6 65 18 110/61 97 I/O 12/14/16 12/14/16 12/14/16 12/15/16 12/15/16 12/15/16 07:00 15:00 23:00 07:00 15:00 23:00 Intake Total 1125 ml 910 ml 1280 ml Output Total 50 ml Balance 1125 ml 910 ml 1230 ml Intake Oral 480 ml IV Total 925 ml 910 ml Other 200 ml 800 ml Estimated Blood Loss 50 ml # Voids 1 3 2 # Bowel Movements 1 Laboratory Laboratory Tests Test 12/15/16 07:04 White Blood Count 4.7 Red Blood Count 3.76 Hemoglobin 11.6 Hematocrit 34.4 Mean Corpuscular Volume 91.3 Mean Corpuscular Hemoglobin 31.0 Mean Corpuscular Hemoglobin 33.9 Concent Red Cell Distribution Width 13.8 Platelet Count 232 Mean Platelet Volume 7.7 Neutrophils (%) (Auto) 64.3 Lymphocytes (%) (Auto) 27.4 Monocytes (%) (Auto) 6.4 Eosinophils (%) (Auto) 1.4 Basophils (%) (Auto) 0.5 Neutrophils # (Auto) 3.0 Lymphocytes # (Auto) 1.3 Monocytes # (Auto) 0.3 Eosinophils # (Auto) 0.1 Basophils # (Auto) 0.0 CBC Comment DIFF FINAL Differential Comment Sodium Level 140 Potassium Level 3.9 Chloride Level 107 Carbon Dioxide Level 27.3 Anion Gap 6 Blood Urea Nitrogen 7 Creatinine 0.42 Estimat Glomerular Filtration 176 Rate Random Glucose 76 Calcium Level 7.6 Total Bilirubin 0.5 Aspartate Amino Transf 299 (AST/SGOT) Alanine Aminotransferase 351 (ALT/SGPT) Alkaline Phosphatase 437 Total Protein 6.3 Albumin 2.9 Date/Time Procedure Status Source Growth 12/14/16 14:41 Aerobic Blood Culture - Preliminary Resulted Blood Peripheral NO GROWTH IN 1 DAY 12/14/16 14:41 Anaerobic Blood Culture - Preliminary Resulted Blood Peripheral NO GROWTH IN 1 DAY Imaging Last Impressions Gall Bladder Ultrasound 12/14/16 0000 Signed Impressions: Service Date/Time: Wednesday, December 14, 2016 09:29 - CONCLUSION: 1. Cholelithiasis with multiple echogenic gallstones. There is no wall thickening or pericholecystic fluid. 2. The common bile duct is enlarged at 9 mm with no visualized stone. The entire duct cannot be visualized. 3. The liver is mildly prominent with findings characteristic of fatty infiltration. Hugo Andersen MD GI Procedure 12/14/16 0000 Signed Impressions: Service Date/Time: Wednesday, December 14, 2016 17:04 - CONCLUSION: ERCP as above. Antoine Lewis MD Physical Exam HEENT: Normocephalic; atraumatic; no jaundice. CHEST: CTA CARDIAC: RRR ABDOMEN: Soft, nondistended, mild diffuse tenderness; no hepatosplenomegaly; bowel sounds hypoactive. Upper steristrips d/i, lower steristrip with 4x4 gauze d/i. EXTREMITIES: No clubbing, cyanosis, or edema. SKIN: Normal; no rash; no jaundice. BARIATRIC COORDINATOR: No focal deficits; alert and oriented times three. (Malika BaezP) Assessment and Plan Plan ASSESSMENT: - Choledocholithiais with abdominal pain, n/v. Gall Bladder Ultrasound (12/14/16 )----> 1. Cholelithiasis with multiple echogenic gallstones. There is no wall thickening or pericholecystic fluid. 2. The common bile duct is enlarged at 9 mm with no visualized stone. The entire duct cannot be visualized. 3. The liver is mildly prominent with findings characteristic of fatty infiltration. S/P ERCP with sphincterotomy and balloon extraction (12/14/16)----> Choledocholithiasis. S/P Lap. Lizbeth today. LFTs improving, T. Bili 0.5, AST 299, ALT 351, Alk Phosph 437. - Elevated LFTs, likely related to above. LFTs improving. - Hepatitis C, Tx naive. - IVDA, last took Dilaudid IV on Saturday. PLAN: - Diet per GS - LFT in am - Await Hepatitis profile - If LFTs trending down and tolerating diet- okay to d/c home tomorrow - Complete drug cessation - FU PABLO in 2 weeks - Pt seen and examined by Dr. Lee and myself and this note is written on his behalf (Malika Baez) Physician Comments Seen and examined, plan as above. (Radha Lee MD) Malika Baez Dec 15, 2016 17:56 Radha Lee MD Dec 15, 2016 18:12
[2016-12-15 20:00] VITALS: BP 118/76; PULSE 78; RESP 16; TEMP 97.3; O2SAT 98
[2016-12-16] VITALS: BP 139/81; PULSE 79; RESP 16; TEMP 99.1; O2SAT 98
[2016-12-16] MEDS: MORPHINE SULFATE 4 MG/ML INJ IV PRN ×3 (03:47→12:55)
[2016-12-16 04:26] LABS: HEMATOCRIT 36.5 % (35.0-46.0); MEAN CELL VOLUME 92.1 FL (80.0-100.0); MEAN CORPUSCULAR HEMOGLOBIN 30.9 PG (27.0-34.0); MEAN CORPUSCULAR HGB CONC 33.5 % (32.0-36.0); PLATELET COUNT 267 TH/MM3 (150-450); RED BLOOD COUNT 3.97 MIL/MM3 (4.00-5.30); REVIEW FLAG FINAL; WHITE BLOOD COUNT 8.1 TH/MM3 (4.0-11.0)
[2016-12-16 05:01] LABS: ALKALINE PHOSPHATASE 376 U/L (45-117); ALT (GPT) 276 U/L (10-53); ANION GAP 7 MEQ/L (5-15); AST (GOT) 171 U/L (15-37); BICARBONATE 28.5 MEQ/L (21.0-32.0); BLOOD UREA NITROGEN 5 MG/DL (7-18); CHLORIDE 104 MEQ/L (98-107); GLOMERULAR FILTRATION RATE 129 ML/MIN (>89); POTASSIUM 3.8 MEQ/L (3.5-5.1); SODIUM (NA) 139 MEQ/L (136-145); TOTAL BILIRUBIN ADULT 0.5 MG/DL (0.2-1.0)
--- NOTE | 2016-12-16 07:16 | MP ---
cc: LUCIANO MIDDLETON M.D. DATE OF SURGERY: 12/15/2016 PROCEDURE Laparoscopic cholecystectomy PREOPERATIVE DIAGNOSIS Cholecystitis with previous choledocholithiasis status post ERCP. POSTOPERATIVE DIAGNOSIS Cholecystitis with previous choledocholithiasis status post ERCP. ANESTHESIA General endotracheal SURGEON Marlyn Middleton MD. ESTIMATED BLOOD LOSS 50 mL FLUIDS: 800 mL crystalloid COMPLICATIONS None. DRAINS: None. SPECIMEN: Gallbladder and stones to pathology. PROCEDURE IN DETAIL The patient was taken to the operating room and placed on the operating table in the supine position. After an adequate level of general endotracheal anesthesia was achieved the abdomen was prepped and draped in usual fashion. Time-out was taken confirming the correct patient, site and procedure to be performed. Skin and subcutaneous tissue was infiltrated with local anesthetic and an incision was made in the umbilicus and carried through the fascia sharply. The peritoneal cavity was directly visualized. A 12 mm balloon trocar was inserted and the balloon inflated. The abdomen was insufflated. The patient was placed in reverse Trendelenburg position. Three 5 mm trocars were then placed with the first in the upper midline to the right of the falciform ligament and second and third in the right subcostal region. All entered the abdominal cavity under direct vision uneventfully. The fundus of the gallbladder was then grasped and retracted upward. Omental adhesions were taken down off of the gallbladder with gentle blunt dissection and minimal use of electrocautery. The cystic duct infundibular junction was circumferentially dissected as was the cystic artery. The cystic artery was a short branch off of the right hepatic artery. Care was taken to clip near the base of the branch and directly on the gallbladder. This was divided and a second small branch that was coursing away and back bleeding slightly was singly clipped as well. The cystic duct was then doubly clipped distally, singly clipped on the gallbladder side and divided as well as the common duct was easily visualized and as it was felt that no further stones had fallen out of the gallbladder since ERCP the previous day. The gallbladder was then dissected off of the liver bed with electro-dissection. The gallbladder was placed into an EndoCatch device and removed via the umbilical port while observing via the upper 5 mm trocar site. The specimen was passed off the table. The upper abdomen was revisualized and all bleeding meticulously controlled in the liver bed with electrocautery. Irrigation was utilized and with no further bleeding noted, the cystic artery stump and cystic duct stump were both seen to be clean and dry. The upper abdominal trocars were removed and insufflation discontinued. No bleeding was noted from the trocar sites during desufflation. The laparoscope and umbilical port were removed. The umbilicus was closed in the fascia with interrupted 0 Vicryl suture. The remaining local anesthetic was injected into all of the trocar sites. The skin was closed at each of the trocar sites with 4-0 Vicryl in an interrupted buried fashion. All trocar sites were dressed with Steri-Strips. The patient was extubated and taken back to the recovery room in stable condition. She tolerated the procedure well. MD JEANNE Isaacs/IJEOMA /8:28 PM /7:05 AM
[2016-12-16 07:52] VITALS: BP 118/83; PULSE 70; RESP 16; TEMP 97.2; O2SAT 96
[2016-12-16] MEDS: SODIUM CHLORIDE 0.9% FLUSH 10 ML FLUSH IV FLUSH SCH (07:53)
[2016-12-16 08:00] VITALS: BP 118/83; PULSE 70; RESP 16; TEMP 97.2; O2SAT 96
[2016-12-16 10:47] VITALS: O2SAT 97
[2016-12-16 12:00] VITALS: BP 123/82; PULSE 80; RESP 17; TEMP 97.8; O2SAT 98
--- NOTE | 2016-12-16 13:50 | ECHRPT ---
Indication: Heart Failure CONCLUSIONS The left ventricular systolic function is normal with an estimated ejection fraction in the range of 55-60%. Normal left ventricular size. Wall thickness is normal. No regional wall motion abnormalities are present. Trace mitral valve regurgitation. There is trace tricuspid valve regurgitation. BP: / HR: Rhythm: Sinus Technical Quality:Good FINDINGS LEFT VENTRICLE Normal left ventricular size. Wall thickness is normal. The left ventricular systolic function is normal with an estimated ejection fraction in the range of 55-60%. No regional wall motion abnormalities are present. RIGHT VENTRICLE Normal right ventricular size and systolic function. LEFT ATRIUM The left atrial size is normal. RIGHT ATRIUM The right atrial size is normal. ATRIAL SEPTUM Normal atrial septal thickness without atrial level shunting by limited color doppler interrogation. AORTA The aortic root and proximal ascending aorta are normal in size on limited imaging. MITRAL VALVE Trace mitral valve regurgitation. AORTIC VALVE Trileaflet aortic valve. No aortic valve stenosis or regurgitation. TRICUSPID VALVE There is trace tricuspid valve regurgitation. PULMONARY VALVE The pulmonary valve is not well visualized. VESSELS The inferior vena cava is normal in size. PERICARDIUM No pericardial effusion. Trav Chandra MD (Electronically Signed) Final Date:16 December 2016 13:49
--- NOTE | 2016-12-16 14:02 | HHI.PR ---
Subjective Subjective Notes DAILY PROGRESS NOTE FOR SURGICAL ATTENDING, DR. CIPRIANO MORRIS Doing okay from laparoscopic cholecystectomy Would like to go home Objective Vitals/I&O Vital Signs Date Time Temp Pulse Resp B/P (MAP) Pulse Ox O2 Delivery O2 Flow Rate FiO2 12/16/16 12:00 97.8 80 17 123/82 (96) 98 12/15/16 10:30 Nasal Cannula 2 12/14/16 12:18 21 Labs Laboratory Tests Test 12/16/16 03:28 White Blood Count 8.1 Red Blood Count 3.97 Hemoglobin 12.3 Hematocrit 36.5 Mean Corpuscular Volume 92.1 Mean Corpuscular Hemoglobin 30.9 Mean Corpuscular Hemoglobin Concent 33.5 Red Cell Distribution Width 14.0 Platelet Count 267 Mean Platelet Volume 7.4 Blood Urea Nitrogen 5 Creatinine 0.55 Random Glucose 93 Total Protein 6.8 Albumin 3.0 Calcium Level 8.8 Alkaline Phosphatase 376 Aspartate Amino Transf (AST/SGOT) 171 Alanine Aminotransferase (ALT/SGPT) 276 Total Bilirubin 0.5 Sodium Level 139 Potassium Level 3.8 Chloride Level 104 Carbon Dioxide Level 28.5 Anion Gap 7 Estimat Glomerular Filtration Rate 129 Date/Time Source Procedure Growth Status 12/14/16 14:41 Blood Peripheral Aerobic Blood Culture - Preliminary NO GROWTH IN 2 DAYS Resulted 12/14/16 14:41 Blood Peripheral Anaerobic Blood Culture - Preliminary NO GROWTH IN 2 DAYS Resulted Radiology Last Impressions Gall Bladder Ultrasound 12/14/16 0000 Signed Impressions: Service Date/Time: Wednesday, December 14, 2016 09:29 - CONCLUSION: 1. Cholelithiasis with multiple echogenic gallstones. There is no wall thickening or pericholecystic fluid. 2. The common bile duct is enlarged at 9 mm with no visualized stone. The entire duct cannot be visualized. 3. The liver is mildly prominent with findings characteristic of fatty infiltration. Hugo Andersen MD GI Procedure 12/14/16 0000 Signed Impressions: Service Date/Time: Wednesday, December 14, 2016 17:04 - CONCLUSION: ERCP as above. Antoine Lewis MD Cardiovascular: Regular Abdomen: Post-op tenderness Narrative Exam Walking around Tolerating diet A/P Problem List: (1) Status post laparoscopic cholecystectomy ICD Codes: Z90.49 - Acquired absence of other specified parts of digestive tract Status: Acute (2) Cholelithiasis ICD Codes: K80.20 - Calculus of gallbladder without cholecystitis without obstruction Status: Acute (3) Choledocholithiasis ICD Codes: K80.50 - Calculus of bile duct without cholangitis or cholecystitis without obstruction Status: Acute (4) Common bile duct dilatation ICD Codes: K83.8 - Other specified diseases of biliary tract Status: Acute Assessment and Plan Status post left upper cholecystectomy doing well Discharge Attending Statement NOTE FOR SURGICAL ATTENDING, DR. CIPRIANO MORRIS I attest that I had a pcso-by-clmd encounter with the patient on the same day, and personally performed and documented my assessment and findings in the medical record. The following services were provided during this hospital visit: Chart data review, vital sign assessments/reviewing monitor data Review of consultations notes if present. Medication orders/review and/or management Ordering and/or reviewing lab tests Ordering and/or interpreting/reviewing x-rays and/or diagnostic studies Care of the patient and discussion of the patient with the care team Documentation time To help prompt me to consider important information that might be impacting today's encounter and assessment, information from prior notes written by myself or my colleagues may have been "brought forward/copy and pasted" into today's note. Problem Qualifiers (1) Cholelithiasis: Cipriano Morris MD Dec 16, 2016 14:02
[2016-12-16] MEDS ORDERED: ACETAMINOPHEN/HYDROcodone 325 MG/5 MG TAB PO PRN (14:30)
[2016-12-16] MEDS ORDERED: IBUPROFEN 400 MG TAB PO PRN (14:30)
--- NOTE | 2016-12-16 14:34 | HHI.FPPN ---
Subjective Remarks Patient seen and examined this morning by medical team. No acute events overnight per nursing staff. Vital signs stable. Patient was nauseous after her cholecystectomy yesterday, which resolved with Zofran administration. This morning she states that she was in pain after the procedure yesterday, however this morning her pain is well controlled and her ice packs are helping greatly. She denies having any bowel gas or bowel movements since her procedure. She is unable to tolerate her diet last night, but is doing well this morning. She has no other complaints and denies any fevers, chills, shortness of breath, chest pain, NVD, abdominal pain, or calf tenderness. Objective Vitals Vital Signs Date Time Temp Pulse Resp B/P (MAP) Pulse Ox O2 Delivery O2 Flow Rate FiO2 12/16/16 12:00 97.8 80 17 123/82 (96) 98 12/16/16 08:00 97.2 70 16 118/83 (95) 96 12/16/16 07:52 97.2 70 16 118/83 (95) 96 12/16/16 00:00 99.1 79 16 139/81 (100) 98 12/15/16 20:00 97.3 78 16 118/76 (90) 98 12/15/16 16:00 97.9 73 17 133/81 (98) 98 I/O 12/15/16 12/15/16 12/15/16 12/16/16 12/16/16 12/16/16 07:00 15:00 23:00 07:00 15:00 23:00 Intake Total 910 ml 1280 ml Output Total 50 ml Balance 910 ml 1230 ml Intake Oral 480 ml IV Total 910 ml Other 800 ml Estimated Blood Loss 50 ml # Voids 3 2 2 0 # Bowel Movements 1 Result Diagram: 12/16/16 0328 12/16/16 0328 Objective Remarks GENERAL: Well-nourished, well-developed female lying in bed in no acute distress watching TV. SKIN: Warm and dry. No rash. Multiple tattoos on upper back and upper extremities. HEENT: Atraumatic, normocephalic with EOMI. MMM. No rhinorrhea. No LAD or JVD appreciated. CARDIOVASCULAR: Regular rate and rhythm with 2/6 systolic ejection murmur at the left sternal border. 2+ pulses in all 4 extremities. RESPIRATORY: Clear to auscultation bilaterally with no CRW. No increased work of breathing. GASTROINTESTINAL: Abdomen soft, nondistended with positive bowel sounds. Patient mildly tender at cholecystectomy incision sites. Incision sites covered with clean, dry, and intact bandages. No signs of erythema, exudate, or hemorrhage. MUSCULOSKELETAL: No cyanosis or edema. Strength grossly WNL. NEURO/PSYCH: Afocal. Awake, alert, and oriented x3. Normal speech and interaction with the examiner. A/P Assessment and Plan Clinical assessment 31-year-old woman with history of hepatitis C and IV drug use without any reported complications of endocarditis in the past admitted with ultrasound findings consistent with cholelithiasis and a possible common bile duct stone. Gastroenterology performed an uncomplicated ERCP. Gen. surgery completed a laparoscopic cholecystectomy without complications as well. Discharge Planning Likely today pending general surgery clearance. Problem List: (1) Cholelithiasis ICD Codes: K80.20 - Calculus of gallbladder without cholecystitis without obstruction Status: Acute Plan: Choledocholithiasis confirmed by ultrasound. - Abdominal ultrasound: Cholelithiasis with multiple echogenic gallstones. There is no wall thickening or pericholecystic fluid. Common bile duct is enlarged at 9 mm with no visualized stone. The entire duct cannot be visualized. Liver is mildly prominent with findings characteristic of fatty infiltration. - GI consult for ERCP with sphincterotomy and balloon stone retrieval: Procedure completed uncomplicated, cleared for discharge - General surgery consult and lap cholecystectomy: Procedure completed an uncomplicated, cleared for discharge - cont pain management -Regular diet as tolerated Patient was not endorsing colitis or completed bowel movement. Hold discharge at this time. -Dulcolax suppository 1 -Cleared for discharge by medical team once patient has bowel movement (2) Transaminitis ICD Codes: R74.0 - Nonspecific elevation of levels of transaminase and lactic acid dehydrogenase [LDH] Status: Acute Plan: Transaminitis due to biliary transaminitis versus acetaminophen tox. Improving post procedure. - AST 625, ALTs 312 --> AST 171, ALT 276 (12/16) - Acetaminophen tox level = less than 2 - Likely transaminitis due to biliary source (3) Common bile duct dilatation ICD Codes: K83.8 - Other specified diseases of biliary tract Status: Acute Plan: See plan as above (4) Hypertension ICD Codes: I10 - Essential (primary) hypertension Status: Chronic Plan: Primary hypertension Cont home medications: Lisinopril 20 daily (5) Heart murmur on physical examination ICD Codes: R01.1 - Cardiac murmur, unspecified Status: Acute Plan: Patient found to have 2-3/6 systolic murmur with history of IV drug abuse concerning for possible endocarditis. -Patient remains afebrile with stable vital signs currently not meeting sepsis criteria. Low suspicion for endocarditis. -Blood cultures: Negative to date -Echocardiogram: Normal left ventricular systolic function with EF of 55-60%. Normal wall thickness. No regional wall abnormalities. Trace mitral valve and tricuspid valve regurgitation. (6) IV drug user ICD Codes: F19.90 - Other psychoactive substance use, unspecified, uncomplicated Status: Chronic Plan: Patient admits to IV Dilaudid use this week -UDS: Negative (7) Bipolar disorder ICD Codes: F31.9 - Bipolar disorder, unspecified Status: Chronic Plan: Continue home medications: Buspirone 15 daily, Tegretol 200 mg daily, fluoxetine 20 daily (8) Surgical contraindication to deep vein thrombosis (DVT) prophylaxis ICD Codes: Z53.09 - Procedure and treatment not carried out because of other contraindication Status: Acute Plan: Fluids: Patient currently tolerating fluids by mouth Electrolytes: Within normal limits, continue to monitor Diet: Regular as tolerated Prophylaxis: Incentive spirometer, constipation protocol, docusate suppository given once for consultation (9) Nutrition, metabolism, and development symptoms ICD Codes: R63.8 - Other symptoms and signs concerning food and fluid intake Status: Acute Plan: Patient currently status post ERCP and cholecystectomy -Hold pharmacological DVT prophylaxis -PAULINE/SCD Problem Qualifiers (1) Cholelithiasis: Daniel Nicole MD R2 Dec 16, 2016 14:34
[2016-12-16] MEDS ORDERED: SENN1TAB PO (15:04)
[2016-12-16] MEDS ORDERED: HYDR-3533 PO (15:04)
--- NOTE | 2016-12-16 15:07 | HHI.DS ---
Discharge Summary Admission Date Dec 14, 2016 at 12:00 Discharge Date: Dec 16, 2016 Admitting Diagnosis Cholelithiasis, obstructing gallstone, Transaminitis (1) Cholelithiasis Diagnosis: Principal Plan: Choledocholithiasis confirmed by ultrasound. - Abdominal ultrasound: Cholelithiasis with multiple echogenic gallstones. There is no wall thickening or pericholecystic fluid. Common bile duct is enlarged at 9 mm with no visualized stone. The entire duct cannot be visualized. Liver is mildly prominent with findings characteristic of fatty infiltration. - GI consult for ERCP with sphincterotomy and balloon stone retrieval: Procedure completed uncomplicated, cleared for discharge - General surgery consult and lap cholecystectomy: Procedure completed an uncomplicated, cleared for discharge - cont pain management -Regular diet as tolerated Patient was not endorsing colitis or completed bowel movement. Hold discharge at this time. -Dulcolax suppository 1 -Cleared for discharge by medical team once patient has bowel movement ICD Codes: K80.20 - Calculus of gallbladder without cholecystitis without obstruction Status: Acute (2) Transaminitis Diagnosis: Principal Plan: Transaminitis due to biliary transaminitis versus acetaminophen tox. Improving post procedure. - AST 625, ALTs 312 --> AST 171, ALT 276 (12/16) - Acetaminophen tox level = less than 2 - Likely transaminitis due to biliary source ICD Codes: R74.0 - Nonspecific elevation of levels of transaminase and lactic acid dehydrogenase [LDH] Status: Acute (3) Common bile duct dilatation Diagnosis: Principal Plan: See plan as above ICD Codes: K83.8 - Other specified diseases of biliary tract Status: Acute (4) Hypertension Diagnosis: Secondary Plan: Primary hypertension Cont home medications: Lisinopril 20 daily ICD Codes: I10 - Essential (primary) hypertension Status: Chronic (5) Heart murmur on physical examination Diagnosis: Secondary Plan: Patient found to have 2-3/6 systolic murmur with history of IV drug abuse concerning for possible endocarditis. -Patient remains afebrile with stable vital signs currently not meeting sepsis criteria. Low suspicion for endocarditis. -Blood cultures: Negative to date -Echocardiogram: Normal left ventricular systolic function with EF of 55-60%. Normal wall thickness. No regional wall abnormalities. Trace mitral valve and tricuspid valve regurgitation. ICD Codes: R01.1 - Cardiac murmur, unspecified Status: Acute (6) IV drug user Diagnosis: Secondary Plan: Patient admits to IV Dilaudid use this week -UDS: Negative ICD Codes: F19.90 - Other psychoactive substance use, unspecified, uncomplicated Status: Chronic (7) Bipolar disorder Diagnosis: Secondary Plan: Continue home medications: Buspirone 15 daily, Tegretol 200 mg daily, fluoxetine 20 daily ICD Codes: F31.9 - Bipolar disorder, unspecified Status: Chronic Brief History 31 y/o F presented to ER with unremitting upper abdominal pain since 3AM. The patient had similar pain around the same time on the 2 nights prior (saturday and saturday night) , however this time the pain did not go away with tylenol. She feels a band of pain around her upper abdomen that radiates to the back. She does experience N/V when she gets the pain. Denies any diarrhea/ constipation. Over the last 24hrs she has vomited 3 times - vomiting food of brown color, no red or green. The pt has a hx of drug use and has been using IV Dilaudid this week during the day. Today she tried tylenol and prilosec and neither relieved her pain. In total she has taken 20 tylenol since saturday. She does not usually take this much tylenol. She has never felt a pain like this before and she has never had biliary colic. She denies any pain following fatty meals. her last meal was a hamburger at 8PM last night. CBC/BMP: 12/16/16 0328 12/16/16 0328 Significant Findings Laboratory Tests Test 12/14/16 09:10 12/15/16 07:04 12/16/16 03:28 Neutrophils (%) (Auto) 76.5 % (16.0-70.0) Monocytes (%) (Auto) 8.2 % (0.0-8.0) Urine Turbidity CLOUDY (CLEAR) Urine Protein 30 mg/dL (NEG-TRACE) Albumin 3.2 GM/DL (3.4-5.0) 2.9 GM/DL (3.4-5.0) 3.0 GM/DL (3.4-5.0) Calcium Level 8.0 MG/DL (8.5-10.1) 7.6 MG/DL (8.5-10.1) Alkaline Phosphatase 489 U/L (45-117) 437 U/L (45-117) 376 U/L (45-117) Aspartate Amino Transf (AST/SGOT) 625 U/L (15-37) 299 U/L (15-37) 171 U/L (15-37) Alanine Aminotransferase (ALT/SGPT) 312 U/L (10-53) 351 U/L (10-53) 276 U/L (10-53) Direct Bilirubin 0.3 MG/DL (0.0-0.2) Acetaminophen Level LESS THAN 2.0 MCG/ML Red Blood Count 3.76 MIL/MM3 (4.00-5.30) 3.97 MIL/MM3 (4.00-5.30) Hematocrit 34.4 % (35.0-46.0) Creatinine 0.42 MG/DL (0.50-1.00) Total Protein 6.3 GM/DL (6.4-8.2) Blood Urea Nitrogen 5 MG/DL (7-18) PE at Discharge Vital signs noted. Blood pressure labile. Afebrile. Gen. appearance: Young woman resting reasonably comfortablely in post- op PACU HEENT: Grossly nonlocalizing. Lungs: Clear to auscultation.: Soft solid murmur left sternal border, no S3 Abdomen: Appearance unremarkable, active bowel sounds, palpation does relate some tenderness on deep palpation in the epigastrium and right upper quadrant, no rebound or referred tenderness. Dressing is in place and covering laparoscopic scars Extremities: Calves are supple, feet are warm and dry. Neurologic: Grossly nonlocalizing. Refer to resident history and physical for complete discussion of details. Hospital Course Patient was admitted to hospital and pain was controlled. Patient was taken for ERCP with sphincterotomy and balloon extraction of stone by gastroenterology. Procedure was uncomplicated on 12/14. General surgery then took the patient for laparoscopic cholecystectomy on 12/15 which was uncomplicated. On day of discharge patient stated that her pain had resolved after her procedures. Of note patient found to have 2/6 systolic ejection murmur at the left sternal border concerning for possible endocarditis as she has a history of IV drug abuse. Blood cultures were negative 3 days and echocardiogram showed a EF of 55 -60% with normal wall motion, mild tricuspid and mitral valve regurgitation, and no other abnormalities documented. She was then discharged on hospital day 3 with [place] for pain control and [facility] for constipation. She is to follow -up with her PCP in Gen. surgery within 1 week. Pt Condition on Discharge: Fair Discharge Disposition: Discharge Home Discharge Instructions DIET: Follow Instructions for: As Tolerated, No Restrictions Activities you can perform: Regular-No Restrictions Other Activity Instructions: Patient is post-op, activity as tolerated and per general surgery. Follow up Referrals: PCP Follow-up - 1 Week Surgical - 1 Week New Medications: Hydrocodone-Acetaminophen (Lortab) 5-325 Mg Tab 1 TAB PO Q4H PRN for PAIN, #20 TAB 0 Refills Sennosides-Docusate Sodium (Senna Plus 8.6-50 mg) 1 Tab Tab 1 TAB PO BID, #60 TAB Continued Medications: Buspirone (Buspirone) 15 Mg Tab 15 MG PO DAILY for Anxiety, TAB 0 Refills Carbamazepine (Tegretol) 200 Mg Tab 1000 MG PO DAILY, #60 TAB 0 Refills Fluoxetine (Prozac) 20 Mg Cap 30 MG PO DAILY, #30 CAP 0 Refills Lisinopril (Lisinopril) 20 Mg Tab 20 MG PO DAILY, #30 TAB 0 Refills Daniel Nicole MD R2 Dec 16, 2016 15:07
[2016-12-16] MEDS ORDERED: BISACODYL 10 MG SUPP RECTAL ONE (15:30)
[2016-12-16 16:00] VITALS: BP 117/69; PULSE 89; RESP 17; TEMP 98.8; O2SAT 97
[2016-12-16] MEDS ORDERED: DOCUSATE SODIUM 50 MG/SENNA 8.6 MG TAB PO SCH (21:00)
== END 2016-12-16 20:31 | disposition home or self-care (01) | DRG 419 ==
LOC: NEPD 08:52 → NEDA 12:00 → N07B 15:06
PROVIDERS: ADMIT Family Medicine; ATTEND Family Medicine
PROC: 0FC98ZZ Extirpation of Matter from Common Bile Duct, Via Natural or Artificial Opening Endoscopic (ICD-10-PCS; 2016-12-14)
PROC: 0FT44ZZ Resection of Gallbladder, Percutaneous Endoscopic Approach (ICD-10-PCS; principal; 2016-12-15 08:02)
DX: K80.44 Calculus of bile duct with chronic cholecystitis without obstruction (principal); I10 Essential (primary) hypertension; B19.20 Unspecified viral hepatitis C without hepatic coma; R74.0 Nonspecific elevation of levels of transaminase and lactic acid dehydrogenase [LDH]; R01.1 Cardiac murmur, unspecified; F31.9 Bipolar disorder, unspecified
CPT/HCPCS: 74330; 76705; 80048; 80053; 80074; 80076; 80307; 81001; 83690; 84703; 85025; 85027; 87040; 88304; 93306; 96361; 96374; 96375; 96376; C1769; J0690; J1170; J1885; J2250; J2270; J2405; J3010; J7030; Q9967

== ENCOUNTER 2017-01-01 09:54 | Emergency (ER) | payer SELFPAY ==
[~2017-01-01] VITALS: Ht 157.5 cm; Wt 80.0 kg
[~2017-01-01 09:54] MED LIST changes: +BUSP15TA PO; +HYDR-3533 PO; +LISI-515 PO; +PROZ20CA11 PO; +SENN1TAB PO; +TEGR200T PO; -Z.0.NO CURRENT MEDS
[2017-01-01 09:56] VITALS: BP 138/98; PULSE 84; RESP 16; TEMP 98.4; O2SAT 98
[2017-01-01] MEDS ORDERED: CEPH-460 PO (10:41)
[2017-01-01] MEDS ORDERED: BACT800T5 PO (10:41)
[2017-01-01] MEDS ORDERED: IBUP800T23 PO (10:42)
--- NOTE | 2017-01-01 10:43 | PD ---
HPI Chief Complaint: Skin Problem Time Seen by Provider: 10:40 Travel History International Travel<30 days: No Contact w/Intl Traveler<30days: No Traveled to known affect area: No History of Present Illness HPI 31-year-old female presents to emergency Department with complaint of an abscess to her right upper buttocks 2 days. Denies fever, vomiting. Denies history of abscesses. Said she cut into it and did get some purulent drainage. Has not taken any medications to alleviate her symptoms. Symptoms are mild in severity. No known allergies. Has no medical complaints. No other modifying factors or associated signs and symptoms. 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16, BIPOLAR) Reproductive: No Respiratory: No Immunizations Current: Yes Tetanus Vaccination: > 5 Years ?: Not LMP: 12/16 : 5 Para: 4 : 1 Tubal Ligation: Yes (01/30/08) Past Surgical History Abdominal Surgery: Yes (C/S) AICD: No Arteriovenous Shunt: No Section: Yes (LAST ) Gynecologic Surgery: Yes ( (1), C SECTION, TUBAL LIGATION) Insulin Pump: No Joint Replacement: No Pacemaker: No Other Surgery: No Social History Alcohol Use: No Tobacco Use: No Substance Use: No Allergies-Medications (Allergen,Severity, Reaction): Coded Allergies: No Known Allergies (Verified , 01/01/17) Reported Meds & Prescriptions Reported Meds & Active Scripts Active Clindamycin (Clindamycin HCl) 150 Mg Cap 450 Mg PO Q6H 10 Days Ibuprofen 800 Mg Tab 800 Mg PO Q6HR PRN Reported Prozac (Fluoxetine HCl) 20 Mg Cap 30 Mg PO DAILY Tegretol (Carbamazepine) 200 Mg Tab 1,000 Mg PO DAILY Lisinopril 20 Mg Tab 20 Mg PO DAILY Buspirone (Buspirone HCl) 15 Mg Tab 15 Mg PO DAILY Review of Systems Except as stated in HPI: all other systems reviewed are Neg Physical Exam Narrative GENERAL: Well-nourished, well-developed female patient, in no acute distress; afebrile, nontoxic-appearing SKIN: There is an indurated area to the right upper buttock which measures about 2 cm in diameter. It is fluctuant; there is pointing, but no drainage. There is a zone of inflammation around it but no lymphangitis. HEAD: Atraumatic. Normocephalic. EYES: Pupils equal and round. No scleral icterus. No injection or drainage. ENT: Mucosa pink and moist. Airway patent. NECK: Trachea midline. CARDIOVASCULAR: Regular rate. RESPIRATORY: No accessory muscle use. GASTROINTESTINAL: Obese. MUSCULOSKELETAL: No obvious deformities. No clubbing. No cyanosis. No edema. NEUROLOGICAL: Awake and alert. Oriented 3. No obvious cranial nerve deficits. Motor grossly within normal limits. Normal speech. PSYCHIATRIC: Appropriate mood and affect; insight and judgment normal. Data Data Last Documented VS Vital Signs Date Time Temp Pulse Resp B/P (MAP) Pulse Ox O2 Delivery O2 Flow Rate FiO2 01/01/17 09:56 98.4 84 16 138/98 (111) 98 MDM Medical Decision Making Medical Screen Exam Complete: Yes Emergency Medical Condition: Yes Medical Record Reviewed: Yes Differential Diagnosis Abscess, folliculitis, cellulitis Narrative Course 31-year-old female physical exam consistent with an abscess of the right buttocks. Patient is afebrile and nontoxic-appearing. Denies fever, vomiting. See my procedure note for incision and drainage. Wound culture pending. Clindamycin and ibuprofen prescribed for home. Instructed patient to follow up with primary care provider. Patient verbalizes understanding and agreement with treatment plan. Patient is medically cleared and stable for discharge. Discussed reasons to return to the emergency department. Patient agrees with treatment plan. The patients vital signs are stable and the patient is stable for outpatient follow-up and treatment. Patient discharged home, stable and in no acute distress. Procedures Procedure Narrative INCISION AND DRAINAGE OF ABSCESS: The area was prepped and was sterilely draped. Ethyl chloride was used to anesthetize the area. The area was properly anesthetized. A number 11 scalpel was used to make a 0.5-cm incision across the area of the abscess. Cultures were obtained. The abscess was drained an irrigated with normal saline. Sterile dressing applied. Diagnosis Primary Impression: Abscess of right buttock Referrals: [facility] Primary Care Physician Patient Instructions: Abscess (ED), Abscess Follow-up (ED), Abscess Incision and Drainage (DC), General Instructions Departure Forms: Tests/Procedures, Work Release Enter return to work date: Jan 02, 2017 Additional Instructions: Complete full course of antibiotics Warm compresses to the affected area Keep area clean and dry Ibuprofen or Tylenol as directed and as needed for pain and inflammation Follow-up with primary care provider Return to emergency department immediately with worsening of symptoms Med/Other Pt SpecificInfo: Prescription(s) given Scripts Clindamycin (Clindamycin) 150 Mg Cap 450 MG PO Q6H for Infection for 10 Days, CAP 0 Refills Prov: Shital Dalton 01/01/17 Ibuprofen (Ibuprofen) 800 Mg Tab 800 MG PO Q6HR Y for PAIN, #30 TAB 0 Refills Prov: Shital Dalton 01/01/17 Disposition: 01 DISCHARGE HOME Condition: Stable Shital Dalton Jan 01, 2017 10:43
[2017-01-01] MEDS ORDERED: CLIN1CAP5 PO (10:51)
== END 2017-01-01 12:35 | disposition home or self-care (01) ==
LOC: NEPK 09:54
DX: L02.31 Cutaneous abscess of buttock (principal); A49.02 Methicillin resistant Staphylococcus aureus infection, unspecified site; F31.9 Bipolar disorder, unspecified; F41.9 Anxiety disorder, unspecified; Z79.899 Other long term (current) drug therapy
CPT/HCPCS: 10060; 86403; 87070; 87186